=== PATIENT | male | born 1990 | race Caucasian/White ===

== ENCOUNTER 2021-08-10 15:25 | Outpatient (CLI) | payer OTHER ==
[2021-08-10 22:11] LABS: CHLAMYDIA TRACHOMATIS DNA NEGATIVE (NEGATIVE); NEISSERIA GONORRHOEAE DNA NEGATIVE (NEGATIVE)
[2021-08-13 14:26] LABS: HIV AG/AB 4TH GEN NON-REACTIVE (NON-REACTIVE)
[2021-08-14 15:25] LABS: HSV 2 IGG TYPE SPECIFIC AB <0.90 index
== END 2021-08-10 23:59 | disposition home or self-care (01) ==
LOC: LAB.N 15:25
PROVIDERS: ATTEND Family Medicine
DX: Z11.3 Encounter for screening for infections with a predominantly sexual mode of transmission (principal)
CPT/HCPCS: 36415; 81599; 86592; 86695; 86696; 87389; 87491; 87591; 87661

== ENCOUNTER 2023-10-03 08:00 | Outpatient (CLI) | payer OTHER ==
[2023-10-04 02:29] LABS: NEISSERIA GONORRHOEAE DNA NEGATIVE (NEGATIVE); TRICHOMONAS VAGINALIS DNA NEGATIVE (NEGATIVE)
[2023-10-04 02:35] LABS: CHLAMYDIA TRACHOMATIS DNA POSITIVE (NEGATIVE)
== END 2023-10-03 23:59 | disposition home or self-care (01) ==
LOC: LAB.N 08:00
PROVIDERS: ATTEND Physician Assistant
DX: R36.9 Urethral discharge, unspecified (principal)
CPT/HCPCS: 87491; 87591; 87661